=== PATIENT | male | born 1970 | race African-American/Black ===

== ENCOUNTER 2017-03-24 04:24 | Emergency (ER) | payer OTHER ==
[~2017-03-24] VITALS: Ht 170.2 cm; Wt 81.0 kg
[~2017-03-24 04:24] MED LIST: CIPR500T4 PO; DOXY100T PO; HYDR-3533 PO; IBUP-238 PO
[2017-03-24 04:25] VITALS: BP 128/69; PULSE 71; RESP 16; TEMP 98.4; O2SAT 99
[2017-03-24] MEDS ORDERED: ROBA750T PO (05:05)
[2017-03-24] MEDS ORDERED: DICL75TA PO (05:05)
[2017-03-24] MEDS ORDERED: HYDR-3533 PO (05:06)
[2017-03-24] MEDS ORDERED: ORPHENADRINE INJ 60 MG/2 ML AMP IM ONE (05:15)
[2017-03-24] MEDS ORDERED: KETOROLAC TROMETHAMINE 60 MG/2 ML (IM) VIAL IM ONE (05:15)
--- NOTE | 2017-03-24 05:26 | PD ---
HPI Chief Complaint: Pain: Acute or Chronic Time Seen by Provider: 04:54 Travel History International Travel<30 days: No Contact w/Intl Traveler<30days: No Traveled to known affect area: No History of Present Illness HPI 46-year-old [id number] black male presents to emergency Department with complaints of right sided neck and shoulder pain over the past 3 or 4 days. 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 He does not recall any injury. He states the pain is worsening moves his arm or neck. He denies any radiation of pain into the shoulder or down the arm. He denies any history of any neck problems in the past. States the pain is moderate to severe. He has taken ibuprofen at home with only minimal relief. PFSH Past Medical History Medical History: Denies Significant Hx Diminished Hearing: No Immunizations Current: Yes Tetanus Vaccination: < 5 Years Influenza Vaccination: No Past Surgical History Surgical History: No Previous Surgery Social History Alcohol Use: Yes (once weekly) Tobacco Use: No Substance Use: No Allergies-Medications (Allergen,Severity, Reaction): Coded Allergies: No Known Allergies (Unverified , 03/24/17) Reported Meds & Prescriptions Reported Meds & Active Scripts Active Lortab (Hydrocodone-Acetaminophen) 5-325 Mg Tab 1 Tab PO Q8HR PRN Robaxin (Methocarbamol) 750 Mg Tab 1,500 Mg PO TID [address] (Diclofenac Sodium) 75 Mg Tabdr 75 Mg PO BID Cipro (Ciprofloxacin HCl) 500 Mg Tab 500 Mg PO BID 10 Days Doxycycline Hyclate 100 mg (Doxycycline Hyclate) 100 Mg Tab 100 Mg PO BID 14 Days TAKE UNTIL GONE Motrin (Ibuprofen) 800 Mg Tab 800 Mg PO TID Lortab 5 mg/325 mg (Hydrocodone/Acetaminophen 5 mg/325 mg) 1 Tab 1 Tab PO Q6H PRN Review of Systems Except as stated in HPI: all other systems reviewed are Neg Physical Exam Narrative GENERAL: This is a well-nourished, well-developed patient, in no apparent distress. SKIN: No rashes, ecchymoses or lesions. Warm and dry. HEAD: Atraumatic. Normocephalic. EYES: PERRL, EOMI, no discharge or injection. No scleral icterus. EARS: Clear NOSE: Nasal turbinates appear normal. THROAT: Mucosa pink and moist. Airway patent. NECK: Trachea midline. No central bony tenderness to palpation of cervical spine. Patient has right paracervical muscle tenderness along the trapezius and rhomboids. Mild spasm. LUNGS: Clear to auscultation. CV: Regular in rhythm. ABDOMEN: Soft nontender. EXT: No clubbing cyanosis or edema. Data Data Last Documented VS Vital Signs Date Time Temp Pulse Resp B/P (MAP) Pulse Ox O2 Delivery O2 Flow Rate FiO2 03/24/17 04:25 98.4 71 16 128/69 (88) 99 Room Air Orders Orders Ketorolac Inj (Toradol Inj) (03/24/17 05:15) Orphenadrine Inj (Norflex Inj) (03/24/17 05:15) MDM Medical Decision Making Medical Screen Exam Complete: Yes Emergency Medical Condition: Yes Medical Record Reviewed: Yes Differential Diagnosis MDM: High Differential diagnoses: Fracture, sprain, strain, HNP, muscle spasm Narrative Course Patient is requesting a shot for pain. He is given Toradol 60 mg and Norflex 60 mg IM. Diagnosis Primary Impression: Neck muscle spasm Additional Impression: Acute neck sprain Qualified Codes: S13.9XXA - Sprain of joints and ligaments of unspecified parts of neck, initial encounter Patient Instructions: General Instructions Departure Forms: Tests/Procedures, Work Release Special Instructions: No work 3 days. Additional Instructions: Rest. Apply heat to the right side of the neck and shoulder for approximately 30 minutes to an hour and perform gentle massage and ice it down 2-3 times a day Robaxin and Voltaren. Lortab for severe pain Follow-up with a primary care doctor in one week. Return to the ER for emergencies. Med/Other Pt SpecificInfo: Prescription(s) given Scripts Hydrocodone-Acetaminophen (Lortab) 5-325 Mg Tab 1 TAB PO Q8HR Y for PAIN, #12 TAB 0 Refills Prov: Jm Reyna MD 03/24/17 Methocarbamol (Robaxin) 750 Mg Tab 1500 MG PO TID for Muscle Spasm for 10 Days, TAB 0 Refills Prov: Jm Reyna MD 03/24/[address] (Diclofenac Sodium DR) 75 Mg Tabdr 75 MG PO BID, #20 TAB 0 Refills Prov: Jm Reyna MD 03/24/17 Disposition: 01 DISCHARGE HOME Condition: Stable Massimo Zamora Mar 24, 2017 05:26
== END 2017-03-24 06:36 | disposition home or self-care (01) ==
LOC: NEPD 04:24
DX: S13.9XXA Sprain of joints and ligaments of unspecified parts of neck, initial encounter (principal); M62.838 Other muscle spasm; X58.XXXA Exposure to other specified factors, initial encounter
CPT/HCPCS: 96372; 99284; J1885; J2360